=== PATIENT | male | born 1995 | race Caucasian/White ===

== ENCOUNTER 2024-05-23 15:12 | Outpatient (CLI) | payer BC, SELFPAY ==
--- NOTE | ~2024-05-23 | MR_ITS ---
EXAMINATION: MR brain/brain stem wo/w con DATE: 05/23/2024 16:07 INDICATION: Seizures. TECHNIQUE: Magnetic resonance imaging (MRI) of the brain and brainstem was performed without and with 20 mL MultiHance intravenous contrast. COMPARISON: None. FINDINGS: There is increased T2-weighted signal intensity in the medial temporal lobes bilaterally. T here are 3 foci of increased T2-weighted signal intensity in the white matter of the frontoparietal r egions, which is normal for the patient's age. There is no intracranial hemorrhage, acute infarction, or abnormal intracranial mass lesion. The ventricles are normal in size. The paranasal sinuses are c lear. The orbits are normal. The mastoid air cells are normal. IMPRESSION: 1. Increased T2-weighted signal intensity in the medial temporal lobes bilaterally, consistent with m esial temporal sclerosis. Reviewed, dictated and finalized at location A. [employer] IMPRESSION: 1. Increased T2-weighted signal intensity in the medial temporal lobes bilatera lly, consistent with mesial temporal sclerosis.
== END 2024-05-23 15:13 | disposition home or self-care (01) ==
PROVIDERS: Visit Provider Nurse Practitioner Family
DX: R93.0 Abnormal findings on diagnostic imaging of skull and head, not elsewhere classified (principal); R56.9 Unspecified convulsions
CPT/HCPCS: 70553; A9577